=== PATIENT | female | born 1995 | race Caucasian/White ===

== ENCOUNTER 2018-06-17 07:02 | Outpatient (CLI) | payer MEDICAID ==
[2018-06-17] MEDS: LACTATED RINGER'S 1,000 ML IV ×2 (09:09→11:53)
== END 2018-06-17 14:34 | disposition home or self-care (01) ==
LOC: OBT 07:02 → L-D 07:02 → OBT 14:34
DX: O26.893 Other specified pregnancy related conditions, third trimester (principal); R10.9 Unspecified abdominal pain; Z3A.37 37 weeks gestation of pregnancy
CPT/HCPCS: 76818; 96360; 96361

== ENCOUNTER 2018-06-19 11:20 | Outpatient (CLI) | payer MEDICAID | END 2018-06-19 14:20 | disposition home or self-care (01) | LOC: OBT 11:20 → L-D 11:21 → OBT 14:20 | DX: O62.9 Abnormality of forces of labor, unspecified (principal); Z3A.37 37 weeks gestation of pregnancy | CPT/HCPCS: 76818 ==

== ENCOUNTER 2018-06-27 16:46 | Outpatient (CLI) | payer MEDICAID ==
[2018-06-27] MEDS: LACTATED RINGER'S 1,000 ML IV (19:45)
== END 2018-06-27 21:00 | disposition home or self-care (01) ==
LOC: OBT 16:46 → L-D 16:47 → OBT 21:00
DX: O36.8130 Decreased fetal movements, third trimester, not applicable or unspecified (principal); Z3A.38 38 weeks gestation of pregnancy
CPT/HCPCS: 36415; 76818; 96360

== ENCOUNTER 2018-06-29 10:42 | Outpatient (CLI) | payer MEDICAID | END 2018-06-29 13:46 | disposition home or self-care (01) | LOC: OBT 10:42 → L-D 10:42 → OBT 13:46 | DX: O36.8130 Decreased fetal movements, third trimester, not applicable or unspecified (principal); Z3A.38 38 weeks gestation of pregnancy | CPT/HCPCS: 76818 ==

== ENCOUNTER 2018-06-30 14:31 | Inpatient (IN) | payer MEDICAID ==
[2018-06-30] MEDS ORDERED: MISOPROSTOL 200 MCG TAB PR ×2 (15:30→23:00)
[2018-06-30] MEDS ORDERED: CARBOPROST 250 MCG INJ IM ×2 (15:30→23:00)
[2018-06-30] MEDS ORDERED: CEFAZOLIN 2 GM/50 ML (PMX) 50 ML IVPB (15:30)
[2018-06-30] MEDS ORDERED: METHYLERGONOVINE 0.2 MG INJ IM ×2 (15:30→23:00)
[2018-06-30] MEDS ORDERED: OXYTOCIN 30 UNITS/LR 500 ML IV ×4 (15:30→23:00)
[2018-06-30 15:34] LABS: ADD MAN DIFF? NO; BASOPHILS % 0.1 % (0.0-2.0); EOSINOPHILS # 0.1 10^3/ul (0.0-0.5); EOSINOPHILS % 0.5 % (0.0-7.0); HEMATOCRIT 37.1 % (37.0-47.0); HEMOGLOBIN 12.1 g/dl (12.0-16.0); LYMPHOCYTES # 1.9 10^3/ul (0.8-2.9); LYMPHOCYTES % 13.5 % (15.0-51.0); MEAN CORPUSCULAR HEMOGLOBIN 29.4 pg (29.0-33.0); MEAN CORPUSCULAR HGB CONC 32.6 g/dl (32.0-37.0); MEAN CORPUSCULAR VOLUME 90.3 fl (82.0-101.0); MEAN PLATELET VOLUME 11.3 fl (7.4-10.4); MONOCYTE # 0.8 10^3/ul (0.3-0.9); NEUTROPHIL # 10.9 10^3/ul (1.6-7.5); PLATELET COUNT 223 10^3/UL (140-415); RED BLOOD COUNT 4.11 10^6/ul (4.20-5.40); RED CELL DISTRIBUTION WIDTH 13.9 % (11.5-14.5)
[2018-06-30 15:34] LABS: WHITE BLOOD COUNT 13.8 10^3/ul (4.8-10.8)
[2018-06-30 15:51] LABS: INR 0.83; PROTIME 11.5 Sec (11.9-14.9); PT RATIO 0.9
[2018-06-30 15:52] LABS: PARTIAL THROMBOPLASTIN TIME 30.5 Sec (23.0-35.0)
[2018-06-30 16:24] LABS: HEPATITIS B SURFACE ANTIGEN NEGATIVE (NEGATIVE)
[2018-06-30] MEDS ORDERED: CITRIC ACID/NA CITRATE 30 ML CUP (17:49)
[2018-06-30] MEDS: CITRIC ACID/NA CITRATE 30 ML CUP PO (17:50)
[2018-06-30] MEDS: LACTATED RINGER'S 1,000 ML IV ×2 (17:51→22:43)
[2018-06-30] MEDS ORDERED: METOCLOPRAMIDE 10 MG INJ (18:06)
[2018-06-30] MEDS ORDERED: KETOROLAC 30 MG INJ (18:06)
[2018-06-30] MEDS ORDERED: morphine SULFATE/PF (10 MG/10 ML) INJ (18:06)
[2018-06-30] MEDS ORDERED: ONDANSETRON 4 MG INJ (18:06)
[2018-06-30] MEDS ORDERED: EPHEDrine SULFATE 50 MG/5 ML SYG (19:16)
[2018-06-30 20:03] LABS: RAPID PLASMA REAGIN NONREACTIVE (NR)
[2018-06-30] MEDS ORDERED: NALOXONE (0.4 MG/ML) INJ IV (21:00)
[2018-06-30] MEDS ORDERED: morphine 2 MG INJ IV ×3 (21:00)
[2018-06-30] MEDS ORDERED: DIPHENHYDRAMINE 50 MG INJ IV ×2 (21:00)
[2018-06-30] MEDS ORDERED: morphine (1 MG/ML) 10ML SYRINGE IV ×3 (21:00)
[2018-06-30] MEDS ORDERED: ONDANSETRON 4 MG INJ IV (21:00)
[2018-06-30] MEDS ORDERED: KETOROLAC 30 MG INJ IV (21:00)
[2018-06-30] MEDS: OXYTOCIN 30 UNITS/LR 500 ML IV ×2 (21:08→23:24)
[2018-06-30] MEDS ORDERED: OXYCODONE/ACETAMINOPHEN (5/325) TAB PO ×2 (23:00)
[2018-07-01 08:42] LABS: ADD MAN DIFF? NO
[2018-07-01 08:51] LABS: BASOPHILS % 0.2 % (0.0-2.0); EOSINOPHILS % 0.4 % (0.0-7.0); HEMATOCRIT 28.5 % (37.0-47.0); HEMOGLOBIN 9.2 g/dl (12.0-16.0); LYMPHOCYTES # 1.8 10^3/ul (0.8-2.9); LYMPHOCYTES % 16.5 % (15.0-51.0); MEAN CORPUSCULAR HEMOGLOBIN 29.4 pg (29.0-33.0); MEAN CORPUSCULAR HGB CONC 32.3 g/dl (32.0-37.0); MEAN CORPUSCULAR VOLUME 91.1 fl (82.0-101.0); MONOCYTE # 0.7 10^3/ul (0.3-0.9); MONOCYTES % 6.5 % (0.0-11.0); NEUTROPHIL # 8.1 10^3/ul (1.6-7.5); NEUTROPHILS % 75.5 % (39.0-77.0); PLATELET COUNT 198 10^3/UL (140-415); RED BLOOD COUNT 3.13 10^6/ul (4.20-5.40); RED CELL DISTRIBUTION WIDTH 14.1 % (11.5-14.5)
[2018-07-01 08:51] LABS: WHITE BLOOD COUNT 10.7 10^3/ul (4.8-10.8)
[2018-07-01] MEDS: SENNA/DOCUSATE NA (8.6MG/50MG) TAB PO ×2 (08:58→21:44)
[2018-07-01] MEDS: LACTATED RINGER'S 1,000 ML IV (08:58)
[2018-07-01] MEDS: KETOROLAC 30 MG INJ IV (16:59)
[2018-07-01] MEDS: IBUPROFEN 800 MG TAB PO (21:45)
[2018-07-02] MEDS: IBUPROFEN 800 MG TAB PO ×3 (05:29→21:39)
[2018-07-02] MEDS: SENNA/DOCUSATE NA (8.6MG/50MG) TAB PO ×2 (09:34→21:39)
[2018-07-03] MEDS: IBUPROFEN 800 MG TAB PO (06:02)
[2018-07-03] MEDS: SENNA/DOCUSATE NA (8.6MG/50MG) TAB PO (08:29)
[2018-07-03] MEDS: LANOLIN 7 GM TUBE TOP (11:28)
[2018-07-03] MEDS: DIPHTH/TET/ACEL PERTUSS (ADULT) 0.5 ML VIAL IM* (11:29)
== END 2018-07-03 13:15 | disposition home or self-care (01) | DRG 788 ==
LOC: L-D 14:31 → PP1 23:18
PROVIDERS: Obstetrics & Gynecology
PROC: 10D00Z1 Extraction of Products of Conception, Low, Open Approach (ICD-10-PCS; principal; 2018-06-30 17:00)
DX: O34.219 Maternal care for unspecified type scar from previous cesarean delivery (principal); O99.824 Streptococcus B carrier state complicating childbirth; Z3A.39 39 weeks gestation of pregnancy; Z37.0 Single live birth; Z23 Encounter for immunization
CPT/HCPCS: 85025; 85610; 85730; 86592; 86850; 86900; 86901; 87340; 90686; 90715; 99464